=== PATIENT | male | born 1995 | race Caucasian/White ===

== ENCOUNTER 2018-03-31 20:56 | Emergency (ER) | payer OTHER ==
[~2018-03-31] VITALS: Ht 185.4 cm; Wt 81.7 kg
[~2018-03-31 20:56] MED LIST: PROVENTIL; ULTRAM 50MG TAB50 MG PO
[2018-03-31] MEDS ORDERED: SYNTHROID25 MC1 (21:00)
[2018-03-31] MEDS ORDERED: HUMALOG100 UNIT/1 (21:00)
[2018-03-31] MEDS ORDERED: VENTOLIN HFA 1818 GM (21:01)
[2018-03-31 21:33] LABS: URINE BILIRUBIN NEGATIVE (Negative); URINE BLOOD NEGATIVE (Negative); URINE CLARITY CLEAR; URINE COLOR STRAW; URINE GLUCOSE-RANDOM 3+ (Negative); URINE KETONES NEGATIVE (Negative); URINE LEUKOCYTES-REFLEX NEGATIVE (Negative); URINE NITRITE-REFLEX NEGATIVE (Negative); URINE PROTEIN NEGATIVE (Negative); URINE UROBILINOGEN 0.2 E.U./dl (0.2-1.0)
[2018-03-31 21:40] LABS: AMP/METHAMP Negative (Negative); BARBITURATES Negative (Negative); BENZODIAZEPINES Negative (Negative); COCAINE Negative (Negative); METHADONE Negative (Negative); OPIATES Negative (Negative); PCP Negative (Negative); THC Negative (Negative)
[2018-03-31 21:51] LABS: ABSOLUTE BASOPHILS 0.1 thou/uL (0.0-0.2); ABSOLUTE EOSINOPHILS 0.2 thou/uL (0.0-0.7); ABSOLUTE LYMPHOCYTES 3.1 thou/uL (0.8-5.3); ABSOLUTE MONOCYTES 0.7 thou/uL (0.0-1.2); ABSOLUTE NEUTROPHILS 3.8 thou/uL (1.6-8.1); BASOPHILS 0.6 %; HEMATOCRIT 44.4 % (42.0-52.0); HEMOGLOBIN 15.1 gm/dL (14.0-18.0); LYMPHOCYTES 40.3 %; MCH 29.5 pg (26.0-34.0); MCHC 33.9 g/dL (28.0-37.0); MCV 86.9 fL (80.0-100.0); MONOCYTES 8.8 %; NUCLEATED RBCS 0 /100WBC; PLATELET COUNT* 257 thou/uL (150-400); POLYS 48.3 %; RBC 5.12 mil/uL (4.50-6.00); WBC 7.8 thou/uL (4.0-11.0)
[2018-03-31 21:52] LABS: PO2 VENOUS 58.6 mmHg (35.0-45.0)
[2018-03-31 21:53] LABS: PCO2 VENOUS 39.5 mmHg (41.0-51.0)
[2018-03-31 21:54] LABS: BE 0.2 mmol/L (-2 to +3)
[2018-03-31 22:02] LABS: CALCIUM 8.8 mg/dL (8.5-10.1); CREATININE 1.1 mg/dL (0.6-1.3)
[2018-03-31 22:04] LABS: ALBUMIN 4.1 g/dL (3.4-5.0); TOTAL BILIRUBIN 0.3 mg/dL (<0.1-1.0); TOTAL PROTEIN 7.4 g/dL (6.4-8.2)
[2018-04-01 01:25] VITALS: BP 133/75
== END 2018-04-01 01:25 | disposition home or self-care (01) ==
LOC: M.ERS 20:56
PROVIDERS: Emergency Medicine
DX: E72.51 Non-ketotic hyperglycinemia (principal); J45.909 Unspecified asthma, uncomplicated; Z79.4 Long term (current) use of insulin; Z79.899 Other long term (current) drug therapy

== ENCOUNTER 2021-03-30 12:17 | Emergency (ER) | payer OTHER ==
[~2021-03-30] VITALS: Ht 182.9 cm; Wt 94.3 kg
[~2021-03-30 12:17] MED LIST changes: +HUMALOG100 UNIT/1; +SYNTHROID25 MC1; +VENTOLIN HFA 1818 GM
[2021-03-30] MEDS ORDERED: CYCLOBENZAPRINE5 MG PO (13:34)
[2021-03-30] MEDS ORDERED: APAP W/CODEINE1 TA2 PO (13:34)
[2021-03-30] MEDS ORDERED: NAPROSYN500 MG PO (13:34)
[2021-03-30 13:51] VITALS: BP 130/78
== END 2021-03-30 13:51 | disposition home or self-care (01) ==
LOC: M.ERS 12:17
DX: S39.012A Strain of muscle, fascia and tendon of lower back, initial encounter (principal); J45.909 Unspecified asthma, uncomplicated; E10.9 Type 1 diabetes mellitus without complications; Z79.4 Long term (current) use of insulin; Z79.51 Long term (current) use of inhaled steroids; Z79.899 Other long term (current) drug therapy; V49.10XA Passenger injured in collision with unspecified motor vehicles in nontraffic accident, initial encounter; Y93.89 Activity, other specified; Y92.89 Other specified places as the place of occurrence of the external cause; Y99.8 Other external cause status